=== PATIENT | female | born 1985 | race Caucasian/White ===

== ENCOUNTER 2017-08-02 00:08 | Emergency (ER) | payer OTHER ==
[~2017-08-02] VITALS: Ht 160 cm; Wt 137.9 kg
[~2017-08-02 00:08] MED LIST: AZITHROMYCIN 2250 MG PO; CYCLOBENZAPRINE10 MG PO; MULTIVITAMINS; NAPROSYN375 MG PO; NOHOMEMEDICATIONS; NORCO 5-325 TA1 EACH PO; OSELB75 PO; PENICILLIN VK500 M1 PO; PERCOCET 5-3251 EACH PO; PERCOCET 7.5-31 EACH PO; PROVENTIL HFA6.7 G1 INH; TRAMADOL 50 MG50 MG PO; ULTRAM 50MG TAB50 MG PO; VITAMIN D 5050000 I1
[2017-08-02] MEDS ORDERED: IBUPROFEN 600600 M1 (00:26)
[2017-08-02] MEDS ORDERED: HYDROCODONE-AP1 EAC6 PO (00:34)
[2017-08-02] MEDS ORDERED: AUGMENTIN 875-1 EACH PO (00:35)
[2017-08-02 00:48] VITALS: BP 177/96
== END 2017-08-02 00:48 | disposition home or self-care (01) ==
LOC: M.ERS 00:08
DX: K08.89 Other specified disorders of teeth and supporting structures (principal); G89.29 Other chronic pain; M54.9 Dorsalgia, unspecified; F17.210 Nicotine dependence, cigarettes, uncomplicated; Z88.5 Allergy status to narcotic agent

== ENCOUNTER 2019-12-27 08:47 | Emergency (ER) | payer OTHER ==
[~2019-12-27] VITALS: Ht 160 cm; Wt 124.7 kg
[~2019-12-27 08:47] MED LIST changes: +AUGMENTIN 875-1 EACH PO; +HYDROCODONE-AP1 EAC6 PO; +IBUPROFEN 600600 M1
[2019-12-27] MEDS ORDERED: CYCLOBENZAPRINE5 MG PO (11:16)
[2019-12-27] MEDS ORDERED: PREDNISONE 20 M20 M1 PO (11:16)
[2019-12-27] MEDS ORDERED: TORADOL 10 MG T10 MG PO (11:16)
[2019-12-27 11:50] VITALS: BP 177/90
== END 2019-12-27 11:50 | disposition home or self-care (01) ==
LOC: M.ERS 08:47
DX: S46.812A Strain of other muscles, fascia and tendons at shoulder and upper arm level, left arm, initial encounter (principal); G89.29 Other chronic pain; F17.210 Nicotine dependence, cigarettes, uncomplicated; Z88.5 Allergy status to narcotic agent; X58.XXXA Exposure to other specified factors, initial encounter; Y93.89 Activity, other specified; Y92.89 Other specified places as the place of occurrence of the external cause; Y99.8 Other external cause status